=== PATIENT | female | born 1955 | race African-American/Black ===

== ENCOUNTER 2016-08-26 17:44 | Emergency (ER) | payer OTHER, MEDICAID ==
[~2016-08-26] VITALS: Ht 167.6 cm; Wt 68.0 kg
[~2016-08-26 17:44] MED LIST: HCTZ PO; LISINOPRIL PO; METH10TA7 PO; METO50TA95 PO; NIFEDIPINE; PROCARDIA PO; TEGRETOL PO; VICODIN; [UNRECOGNIZED DRUG - CODE]
[2016-08-26] MEDS ORDERED: CARBAMAZEPINE 200MG TABLET PO ONE (18:30)
[2016-08-26] MEDS ORDERED: ACETAMINOPHEN 325MG TABLET PO ONE (18:30)
[2016-08-26 18:42] VITALS: BP 140/51
[2016-08-26 18:56] LABS: BASOPHILS % 0.1 % (0.0-2.0); EOSINOPHILS % 0.5 % (0.0-5.0); HEMATOCRIT. 40.3 % (36.0-48.0); HEMOGLOBIN. 13.6 g/dL (12.0-16.0); LYMPHOCYTES % 18.8 % (20.0-50.0); MEAN CORPUSCULAR HEMOGLOBIN 31.3 pg (28.0-32.0); MEAN CORPUSCULAR HGB CONC 33.8 g/dL (31.0-37.0); MEAN CORPUSCULAR VOLUME 92.7 fL (81.0-99.0); MEAN PLATELET VOLUME 7.7 fl (7.4-10.4); NEUTROPHILS % 73.6 % (40.0-76.0); PLATELET 226 x1000/uL (130-400); RED BLOOD CELL COUNT 4.35 mill/uL (4.2-5.4); RED CELL DISTRIBUTION WIDTH 14.2 % (11.6-14.6); WHITE BLOOD COUNT 8.7 x1000/uL (4.5-11.0)
[2016-08-26 18:57] LABS: CLARITY URINE CLOUDY (CLEAR); COLOR URINE DARK YELLOW (YELLOW); GLUCOSE URINE NEGATIVE (NEGATIVE); KETONES URINE NEGATIVE (NEGATIVE); LEUKOCYTE ESTERASE URINE 2+ (NEGATIVE); NITRITE URINE NEGATIVE (NEGATIVE); OCCULT BLOOD URINE NEGATIVE (NEGATIVE); PROTEIN URINE 1+ (NEGATIVE); SPECIFIC GRAVITY URINE 1.025 (1.005-1.030)
[2016-08-26 18:58] LABS: CHLORIDE 100 mEq/L (98-107); INDEX HEMOLYSI 1 (1-3); INDEX ICTERIC 1 (1-4); INDEX LIPEMIC 1 (1-3)
[2016-08-26 19:07] LABS: ALANINE AMINOTRANSFERASE 22 IU/L (13-61); ALBUMIN 3.6 g/dL (3.4-5.0); ANION GAP 13; CARBON DIOXIDE 27 mEq/L (21-32); ETHANOL BLOOD < 10 mg/dL; PHENYTOIN 0.5 ug/mL (10-20); TROPONIN I < 0.02 ng/mL (0.00-0.04); UREA NITROGEN BLOOD 20 mg/dL (7-21); eGFR > 60 mL/min (>60)
[2016-08-26 19:14] LABS: CARBAMAZEPINE 0.5 ug/mL (4-12); PHENOBARBITAL < 2.1 ug/mL (15.0-40.0); THYROID STIMULATING HORMONE < 0.01 uIU/mL (0.36-3.74); VALPROIC ACID < 3.0 ug/mL (50-100)
[2016-08-26 19:36] LABS: BACTERIA URINE 1+; RBC URINE 0-2 /hpf (0-2); SQUAMOUS EPITHELIAL CELL URINE 2+ /lpf (RARE/1+)
== END 2016-08-26 20:28 | disposition home or self-care (01) ==
LOC: ER 17:45
DX: R56.9 Unspecified convulsions (principal); Z79.899 Other long term (current) drug therapy; I10 Essential (primary) hypertension; R51 Headache; N39.0 Urinary tract infection, site not specified
CPT/HCPCS: 36415; 80053; 80156; 80165; 80184; 80185; 81001; 84443; 84484; 85025; 99284; G0482

== ENCOUNTER 2017-06-04 11:07 | Emergency (ER) | payer OTHER, MEDICAID ==
[~2017-06-04] VITALS: Ht 170.2 cm; Wt 90.0 kg
[2017-06-04 12:24] LABS: BASOPHILS % 0.2 % (0.0-2.0); EOSINOPHILS % 0.8 % (0.0-5.0); HEMATOCRIT. 41.3 % (36.0-48.0); LYMPHOCYTES % 21.1 % (20.0-50.0); MEAN CORPUSCULAR VOLUME 94.4 fL (81.0-99.0); MEAN PLATELET VOLUME 7.6 fl (7.4-10.4); NEUTROPHILS % 70.9 % (40.0-76.0); PLATELET 216 x1000/uL (130-400); RED BLOOD CELL COUNT 4.37 mill/uL (4.2-5.4); RED CELL DISTRIBUTION WIDTH 13.6 % (11.6-14.6)
[2017-06-04 12:39] LABS: CARBON DIOXIDE 27 mEq/L (21-32); CHLORIDE 104 mEq/L (98-107); ETHANOL BLOOD < 10 mg/dL
[2017-06-04 12:42] LABS: CARBAMAZEPINE < 0.5 ug/mL (4-12)
[2017-06-04] MEDS ORDERED: CARBAMAZEPINE 100MG TABLET CHEW PO ONE (12:45)
[2017-06-04 14:43] VITALS: BP 157/85
== END 2017-06-04 15:58 | disposition home or self-care (01) ==
LOC: ER 11:19
DX: R56.9 Unspecified convulsions (principal); I10 Essential (primary) hypertension
CPT/HCPCS: 36415; 80053; 80156; 85025; 99284; G0482

== ENCOUNTER 2017-12-02 01:16 | Emergency (ER) | payer OTHER, MEDICAID ==
[~2017-12-02] VITALS: Ht 170.2 cm; Wt 78.0 kg
[2017-12-02 03:22] LABS: CHLORIDE 105 mEq/L (98-107)
[2017-12-02 03:29] LABS: BASOPHILS % 0.3 % (0.0-2.0); EOSINOPHILS % 1.5 % (0.0-5.0); HEMATOCRIT. 39.4 % (36.0-48.0); HEMOGLOBIN. 13.5 g/dL (12.0-16.0); LYMPHOCYTES % 40.3 % (20.0-50.0); MEAN CORPUSCULAR HEMOGLOBIN 31.8 pg (28.0-32.0); MEAN PLATELET VOLUME 7.5 fl (7.4-10.4); MONOCYTES % 6.9 % (2.0-8.0); PLATELET 216 x1000/uL (130-400); RED BLOOD CELL COUNT 4.24 mill/uL (4.2-5.4); RED CELL DISTRIBUTION WIDTH 14.3 % (11.6-14.6)
[2017-12-02 03:31] LABS: CARBAMAZEPINE 1.9 ug/mL (4-12)
[2017-12-02] MEDS ORDERED: CARBAMAZEPINE 200MG TABLET PO ONE (04:15)
[2017-12-02 04:43] VITALS: BP 159/93
== END 2017-12-02 05:07 | disposition home or self-care (01) ==
LOC: ER 01:16
DX: G40.909 Epilepsy, unspecified, not intractable, without status epilepticus (principal); M25.512 Pain in left shoulder; I10 Essential (primary) hypertension; W01.0XXA Fall on same level from slipping, tripping and stumbling without subsequent striking against object, initial encounter; Y93.89 Activity, other specified; Y92.018 Other place in single-family (private) house as the place of occurrence of the external cause
CPT/HCPCS: 36415; 80053; 80156; 85025; 99284

== ENCOUNTER 2018-05-14 02:18 | Emergency (ER) | payer OTHER, MEDICAID ==
[~2018-05-14] VITALS: Ht 175.3 cm; Wt 75.0 kg
[2018-05-14] MEDS ORDERED: SODIUM CHLORIDE 0.9% 1,000 ML IV ONE (02:33)
[2018-05-14 03:01] LABS: BASOPHILS % 0.2 % (0.0-2.0); EOSINOPHILS % 0.4 % (0.0-5.0); HEMATOCRIT. 40.7 % (36.0-48.0); LYMPHOCYTES % 15.8 % (20.0-50.0); MEAN CORPUSCULAR HEMOGLOBIN 33.6 pg (28.0-32.0); MEAN CORPUSCULAR VOLUME 97.5 fL (81.0-99.0); MEAN PLATELET VOLUME 7.4 fl (7.4-10.4); MONOCYTES % 5.1 % (2.0-8.0); NEUTROPHILS % 78.5 % (40.0-76.0); PLATELET 199 x1000/uL (130-400); RED BLOOD CELL COUNT 4.17 mill/uL (4.2-5.4); RED CELL DISTRIBUTION WIDTH 13.7 % (11.6-14.6)
[2018-05-14 03:07] LABS: CHLORIDE 104 mEq/L (98-107)
[2018-05-14] MEDS ORDERED: HYDROCODONE/ACETAMINOPHEN 10/325MG TABLET PO ONE (04:15)
[2018-05-14] MEDS ORDERED: POTASSIUM CHLORIDE 20MEQ TABLET SR PO SCH (04:55)
[2018-05-14 06:53] VITALS: BP 141/77
== END 2018-05-14 07:01 | disposition home or self-care (01) ==
LOC: ER 02:18
DX: G40.909 Epilepsy, unspecified, not intractable, without status epilepticus (principal); S00.83XA Contusion of other part of head, initial encounter; S01.511A Laceration without foreign body of lip, initial encounter; F17.200 Nicotine dependence, unspecified, uncomplicated; I10 Essential (primary) hypertension; W06.XXXA Fall from bed, initial encounter; Y93.89 Activity, other specified; Y92.018 Other place in single-family (private) house as the place of occurrence of the external cause
CPT/HCPCS: 36415; 70450; 70486; 72125; 80053; 83690; 85025; 86850; 86900; 86901; 99284; J7030

== ENCOUNTER 2019-08-12 18:45 | Emergency (ER) | payer MEDICARE, MEDICAID ==
[~2019-08-12] VITALS: Ht 180.3 cm; Wt 77.0 kg
[2019-08-12 21:35] LABS: CLARITY URINE CLEAR (CLEAR); COLOR URINE YELLOW (YELLOW); KETONES URINE NEGATIVE (NEGATIVE); LEUKOCYTE ESTERASE URINE 2+ (NEGATIVE); NITRITE URINE NEGATIVE (NEGATIVE); OCCULT BLOOD URINE NEGATIVE (NEGATIVE); PROTEIN URINE NEGATIVE (NEGATIVE); SPECIFIC GRAVITY URINE 1.017 (1.005-1.030); UROBILINOGEN URINE 0.2 E.U./dL (0.2-1.0)
[2019-08-12 21:43] LABS: CHLORIDE 102 mEq/L (98-107)
[2019-08-12 21:48] LABS: BASOPHILS % 0.4 % (0.0-2.0); EOSINOPHILS % 1.1 % (0.0-5.0); HEMATOCRIT. 45.9 % (36.0-48.0); HEMOGLOBIN. 16.2 g/dL (12.0-16.0); LYMPHOCYTES % 46.9 % (20.0-50.0); MEAN CORPUSCULAR HEMOGLOBIN 35.9 pg (28.0-32.0); MEAN CORPUSCULAR VOLUME 101.9 fL (81.0-99.0); MEAN PLATELET VOLUME 7.5 fl (7.4-10.4); MONOCYTES % 4.8 % (2.0-8.0); NEUTROPHILS % 46.8 % (40.0-76.0); PLATELET 252 x1000/uL (130-400); RED CELL DISTRIBUTION WIDTH 14.7 % (11.6-14.6)
[2019-08-12] MEDS ORDERED: IBUPROFEN 600MG TABLET PO STA (22:06)
[2019-08-12 22:15] VITALS: BP 125/78
== END 2019-08-12 22:27 | disposition home or self-care (01) ==
LOC: ER 18:45
DX: R10.9 Unspecified abdominal pain (principal); N39.0 Urinary tract infection, site not specified; I10 Essential (primary) hypertension; E05.90 Thyrotoxicosis, unspecified without thyrotoxic crisis or storm; R56.9 Unspecified convulsions
CPT/HCPCS: 36415; 71045; 80053; 81003; 85025; 99284

== ENCOUNTER 2020-05-29 07:36 | Emergency (ER) | payer MEDICARE, MEDICAID ==
[~2020-05-29] VITALS: Ht 170.2 cm; Wt 75.0 kg
[2020-05-29] MEDS ORDERED: HYDROCODONE/ACETAMINOPHEN 5/325MG TABLET PO STA (08:27)
[2020-05-29] MEDS ORDERED: ONDANSETRON 4MG ODT PO STA (08:27)
[2020-05-29 08:58] LABS: CHLORIDE 95 mEq/L (98-107)
[2020-05-29 08:59] LABS: BASOPHILS % 0.3 % (0.0-2.0); EOSINOPHILS % 0.6 % (0.0-5.0); HEMATOCRIT. 46.9 % (36.0-48.0); HEMOGLOBIN. 16.1 g/dL (12.0-16.0); LYMPHOCYTES % 22.2 % (20.0-50.0); MEAN CORPUSCULAR HEMOGLOBIN 34.1 pg (28.0-32.0); MEAN CORPUSCULAR VOLUME 99.4 fL (81.0-99.0); MEAN PLATELET VOLUME 7.5 fl (7.4-10.4); MONOCYTES % 8.1 % (2.0-8.0); NEUTROPHILS % 68.8 % (40.0-76.0); PLATELET 203 x1000/uL (130-400); RED BLOOD CELL COUNT 4.72 mill/uL (4.2-5.4); RED CELL DISTRIBUTION WIDTH 14.2 % (11.6-14.6)
[2020-05-29 09:31] LABS: PROTHROMBIN TIME 10.4 sec (9.6-11.0)
[2020-05-29 11:30] VITALS: BP 130/88
== END 2020-05-29 12:03 | disposition home or self-care (01) ==
LOC: ER 07:58
DX: U07.1 COVID-19 (principal); R10.13 Epigastric pain; E11.9 Type 2 diabetes mellitus without complications; I10 Essential (primary) hypertension; G40.909 Epilepsy, unspecified, not intractable, without status epilepticus; E05.90 Thyrotoxicosis, unspecified without thyrotoxic crisis or storm; F17.210 Nicotine dependence, cigarettes, uncomplicated
CPT/HCPCS: 36415; 80053; 83690; 85025; 85610; 99284; C9803; Q0162; U0003

== ENCOUNTER 2021-10-24 14:18 | Emergency (ER) | payer BC, MEDICAID ==
[~2021-10-24] VITALS: Ht 170.2 cm; Wt 82.0 kg
[2021-10-24 15:39] LABS: BASOPHILS % 0.3 % (0.0-2.0); EOSINOPHILS % 0.3 % (0.0-5.0); HEMATOCRIT. 44.8 % (36.0-48.0); HEMOGLOBIN. 15.2 g/dL (12.0-16.0); LYMPHOCYTES % 13.6 % (20.0-50.0); MEAN CORPUSCULAR HEMOGLOBIN 33.6 pg (28.0-32.0); MEAN CORPUSCULAR VOLUME 99.2 fL (81.0-99.0); MEAN PLATELET VOLUME 7.4 fl (7.4-10.4); MONOCYTES % 4.8 % (2.0-8.0); PLATELET 237 x1000/uL (130-400); RED BLOOD CELL COUNT 4.52 mill/uL (4.2-5.4); RED CELL DISTRIBUTION WIDTH 14.8 % (11.6-14.6)
[2021-10-24 15:47] LABS: CHLORIDE 98 mEq/L (98-107)
[2021-10-24] MEDS ORDERED: ACETAMINOPHEN 325MG TABLET PO ONE (17:30)
[2021-10-24] MEDS ORDERED: TETANUS, DIPHTHERIA, PERTUSSIS VAC/PF 0.5ML (>10YR OLD) IM ONE (19:15)
[2021-10-24 19:16] LABS: CLARITY URINE CLEAR (CLEAR); COLOR URINE YELLOW (YELLOW); KETONES URINE NEGATIVE (NEGATIVE); LEUKOCYTE ESTERASE URINE NEGATIVE (NEGATIVE); NITRITE URINE NEGATIVE (NEGATIVE); OCCULT BLOOD URINE NEGATIVE (NEGATIVE); PROTEIN URINE NEGATIVE (NEGATIVE)
[2021-10-24 21:06] VITALS: BP 155/62
== END 2021-10-24 21:07 | disposition home or self-care (01) ==
LOC: ER 14:18
DX: R07.89 Other chest pain (principal); I10 Essential (primary) hypertension; R56.9 Unspecified convulsions; Z90.49 Acquired absence of other specified parts of digestive tract; Z90.710 Acquired absence of both cervix and uterus; E05.90 Thyrotoxicosis, unspecified without thyrotoxic crisis or storm
CPT/HCPCS: 36415; 71045; 80053; 80156; 81003; 84484; 85025; 90471; 90715; 93005; 99285

== ENCOUNTER 2024-09-02 20:26 | Emergency (ER) | payer BC, MEDICAID ==
[~2024-09-02] VITALS: Ht 167.6 cm; Wt 91.0 kg
[~2024-09-02 20:26] MED LIST changes: +METH-372 PO; -METH10TA7 PO
[2024-09-02 20:34] VITALS: O2SAT 98
[2024-09-02 20:44] VITALS: BP 144/88; PULSE 68; RESP 18; TEMP 36.7; O2SAT 99
[2024-09-02 21:23] LABS: BASOPHILS % 0.5 % (0.0-2.0); DIFFERENTIAL COMMENT 0; EOSINOPHILS % 0.6 % (0.0-5.0); HEMATOCRIT. 42.8 % (36.0-48.0); HEMOGLOBIN. 14.2 g/dL (12.0-16.0); LYMPHOCYTES % 27.8 % (20.0-50.0); MEAN CORPUSCULAR HEMOGLOBIN 34.4 pg (28.0-32.0); MEAN CORPUSCULAR HGB CONC 33.1 g/dL (31.0-37.0); MEAN CORPUSCULAR VOLUME 103.8 fL (81.0-99.0); MEAN PLATELET VOLUME 6.9 fl (7.4-10.4); MONOCYTES % 6.3 % (2.0-8.0); NEUTROPHILS % 64.8 % (40.0-76.0); PLATELET 246 x1000/uL (130-400); RED BLOOD CELL COUNT 4.13 mill/uL (4.2-5.4); RED CELL DISTRIBUTION WIDTH 14.2 % (11.6-14.6); WHITE BLOOD COUNT 10.1 x1000/uL (4.5-11.0)
[2024-09-02 21:30] LABS: CHLORIDE 102 mEq/L (98-107); SODIUM 138 mEq/L (136-145)
[2024-09-02 21:31] LABS: CALCIUM 10.2 mg/dL (8.7-10.4); CARBON DIOXIDE 27 mEq/L (21-32)
[2024-09-02 21:36] LABS: CREATININE 0.9 mg/dL (0.6-1.0); GLUCOSE 88 mg/dL (70-105); UREA NITROGEN BLOOD 15 mg/dL (9-23)
[2024-09-02 21:38] LABS: ALANINE AMINOTRANSFERASE 31 IU/L (10-49); ALBUMIN 4.5 g/dL (3.2-4.8); ASPARTATE AMINOTRANSFERASE 21 IU/L (<34); BILIRUBIN TOTAL 0.7 mg/dL (0.1-1.0); PROTEIN TOTAL 7.4 g/dL (6.0-8.3)
[2024-09-02] MEDS ORDERED: HYDROCODONE/ACETAMINOPHEN 5/325MG TABLET PO ONE (23:00)
== END 2024-09-03 | disposition left against medical advice (07) ==
LOC: ER 20:26
DX: R56.9 Unspecified convulsions (principal); M25.552 Pain in left hip; I10 Essential (primary) hypertension; E05.90 Thyrotoxicosis, unspecified without thyrotoxic crisis or storm; Z79.899 Other long term (current) drug therapy; Z90.49 Acquired absence of other specified parts of digestive tract; Z90.710 Acquired absence of both cervix and uterus
CPT/HCPCS: 36415; 80053; 85025; 99283

== ENCOUNTER 2025-05-19 08:53 | Emergency (ER) | payer MEDICAID ==
[~2025-05-19] VITALS: Ht 170.2 cm; Wt 91.0 kg
[2025-05-19 08:55] VITALS: O2SAT 97
[2025-05-19 09:24] LABS: BASOPHILS % 0.6 % (0.0-2.0); EOSINOPHILS % 1.4 % (0.0-5.0); HEMATOCRIT. 41.5 % (36.0-48.0); HEMOGLOBIN. 14.1 g/dL (12.0-16.0); LYMPHOCYTES % 29.6 % (20.0-50.0); MEAN PLATELET VOLUME 7.5 fl (7.4-10.4); MONOCYTES % 6.8 % (2.0-8.0); NEUTROPHILS % 61.6 % (40.0-76.0); PLATELET 242 x1000/uL (130-400); RED BLOOD CELL COUNT 4.11 mill/uL (4.2-5.4); RED CELL DISTRIBUTION WIDTH 14.7 % (11.6-14.6)
[2025-05-19 09:38] LABS: INR 1.0
[2025-05-19 09:39] LABS: CREATININE 1.1 mg/dL (0.6-1.0); UREA NITROGEN BLOOD 10 mg/dL (9-23)
[2025-05-19 09:40] LABS: ETHANOL BLOOD < 10 mg/dL (<10); PROTEIN TOTAL 7.0 g/dL (6.0-8.3)
[2025-05-19 09:41] LABS: ASPARTATE AMINOTRANSFERASE 26 IU/L (<34); BILIRUBIN DIRECT 0.2 mg/dL (<=3.0)
[2025-05-19 09:42] LABS: BILIRUBIN TOTAL 0.9 mg/dL (0.1-1.0)
[2025-05-19 09:43] LABS: T4 FREE 0.79 ng/dL (0.89-1.76)
[2025-05-19 09:51] VITALS: TEMP 36.9
[2025-05-19] MEDS: CARBAMAZEPINE 100MG TABLET CHEW PO ONE (10:11)
[2025-05-19 11:39] LABS: INFLUENZA TYPE A Presumptive Negative (Pres. Neg.); INFLUENZA TYPE B Presumptive Negative (Pres. Neg.)
[2025-05-19 11:40] LABS: RESPIRATORY SYNCYTIAL VIRUS Not Detected (Not Detectd)
[2025-05-19 12:13] VITALS: TEMP 98.4
[2025-05-19 12:17] LABS: CLARITY URINE CLEAR (CLEAR); COLOR URINE YELLOW (YELLOW); GLUCOSE URINE NEGATIVE (NEGATIVE); KETONES URINE NEGATIVE (NEGATIVE); LEUKOCYTE ESTERASE URINE NEGATIVE (NEGATIVE); NITRITE URINE NEGATIVE (NEGATIVE); OCCULT BLOOD URINE NEGATIVE (NEGATIVE); PH URINE 5.5 (4.5-8.0); PROTEIN URINE NEGATIVE (NEGATIVE); SPECIFIC GRAVITY URINE 1.019 (1.005-1.030); UROBILINOGEN URINE 0.2 E.U./dL (0.2-1.0)
[2025-05-19 12:49] LABS: *AMPHETAMINES SCREEN URINE NEGATIVE (NEGATIVE); *BARBITURATES SCREEN URINE NEGATIVE (NEGATIVE); *BENZODIAZEPINES SCREEN URINE NEGATIVE (NEGATIVE); *COCAINE SCREEN URINE NEGATIVE (NEGATIVE)
[2025-05-19 12:50] LABS: CANNABINOID URINE SCREEN NEGATIVE (NEGATIVE); ECSTASY MDMA SCREEN URINE NEGATIVE (NEGATIVE); METHADONE URINE SCREEN NEGATIVE (NEGATIVE); OPIATES URINE SCREEN NEGATIVE (NEGATIVE); PHENCYCLIDINE URINE SCREEN NEGATIVE (NEGATIVE)
[2025-05-19 12:59] VITALS: BP 135/77; PULSE 76; RESP 14; O2SAT 98
== END 2025-05-19 13:33 | disposition home or self-care (01) ==
LOC: ER 08:53 → CANBEDREQ 13:26 → ER 13:33
DX: G40.909 Epilepsy, unspecified, not intractable, without status epilepticus (principal); E03.9 Hypothyroidism, unspecified; I10 Essential (primary) hypertension; Z79.899 Other long term (current) drug therapy; Z90.49 Acquired absence of other specified parts of digestive tract; Z90.710 Acquired absence of both cervix and uterus
CPT/HCPCS: 36415; 71045; 80048; 80076; 80305; 80320; 81003; 83735; 84439; 84443; 85025; 87420; 87804; 93005; 99285; G0480